=== PATIENT | male | born 1940 | race Caucasian/White ===

== ENCOUNTER 2017-03-21 14:54 | Inpatient (IN) | payer MEDICARE, OTHER ==
[~2017-03-21] VITALS: Ht 193 cm; Wt 102.3 kg
[2017-03-21] MEDS ORDERED: cefTRIAXone 1GM/50ML D5W 50 ML IV ONE (15:00)
[2017-03-21] MEDS ORDERED: VANCOMYCIN PER PHARMACY 0 MG IV SCH (15:00)
[2017-03-21] MEDS ORDERED: FUROSEMIDE 40 MG/4 ML VIAL IV ONE (15:00)
[2017-03-21] MEDS ORDERED: DEXTROSE (50%) 50ML SYRG IV PRN (15:00)
[2017-03-21] MEDS ORDERED: POTASSIUM CHL 20 Meq TABLET PO ONE (15:00)
[2017-03-21] MEDS ORDERED: metroNIDAZOLE 500MG/100ML 100 ML IV ONE (16:00)
[2017-03-21 16:57] LABS: Basophils # (auto) 0.1 uL; Eosinophils # (auto) 0.2 uL; Hemoglobin 10.7 g/dL (13.5-17.5); Lymphocytes # (auto) 1.4 uL; Monocytes # (auto) 0.6 uL
[2017-03-21] MEDS: ACCU-CHEK COMFORT CURVE STRIP VI SCH ×2 (17:00→22:14)
[2017-03-21] MEDS ORDERED: VANCOMYCIN 1GM/250ML D5W 250 ML IV ONE (17:00)
[2017-03-21] MEDS: InsuLIN REG 1unit/0.01ml Soln (100units/ml) SC SCH ×2 (17:00→22:14)
[2017-03-21 17:01] LABS: Basophils % (auto) 1.3 % (0.0-2.0); Eosinophils % (auto) 2.6 % (0.0-7.0); Hematocrit 31.9 % (41.0-53.0); Lymphocytes % (auto) 22.4 % (10.0-50.0); Mean Corpuscular Hgb Conc. 33.5 g/dL (32.0-36.0); Mean Corpuscular Volume 101.4 fL (80.0-100.0); Mean Platelet Volume 8.4 fL (6.9-10.8); Neutrophils # (auto) 3.8 uL; Neutrophils % (auto) 63.7 % (37.0-80.0); Nucleated Red Blood Cells % 0.1 %; Platelet Count (auto) 215 10^3/uL (140-450); Red Cell Distribution Width 13.7 % (11.8-14.3)
[2017-03-21 17:07] LABS: INR 1.01 (0.9-1.15)
[2017-03-21 17:16] LABS: Albumin 3.3 g/dL (3.4-5.0); Calcium 8.5 mg/dL (8.5-10.1); Potassium 4.8 mmol/L (3.5-5.1)
[2017-03-21 17:19] LABS: BUN/Creatinine Ratio 11.1; Bilirubin, Total 0.4 mg/dL (0.2-1.0); Total Protein 6.7 g/dL (6.4-8.2)
[2017-03-21 17:42] VITALS: BP 191/81
[2017-03-21 17:52] LABS: Macrocytosis Slight; Platelet Estimate Adequate
[2017-03-21] MEDS: IPRATROPIUM BROM 0.5 MG/2.5ML INH SOL NEB SCH (17:58)
[2017-03-21] MEDS: ALBUTEROL SULF 2.5 MG/0.5ML(0.5%) NEB SOLN NEB SCH (17:58)
[2017-03-21] MEDS ORDERED: PEN400T PO (19:51)
[2017-03-21] MEDS ORDERED: METO-159 PO (19:51)
[2017-03-21] MEDS ORDERED: AMLO10TA2 PO (19:51)
[2017-03-21] MEDS ORDERED: FURO80TA3 PO (19:51)
[2017-03-21] MEDS ORDERED: CALC0.5C PO (19:51)
[2017-03-21] MEDS ORDERED: ATOR20TA PO (19:51)
[2017-03-21] MEDS ORDERED: LEVO50TA7 PO (19:51)
[2017-03-21 20:46] VITALS: BP 191/81
[2017-03-21 22:00] VITALS: BP 157/71
[2017-03-21] MEDS ORDERED: metroNIDAZOLE 500MG/100ML 100 ML IV SCH (22:00)
[2017-03-21] MEDS: metroNIDAZOLE 500MG/100ML 100 ML IV SCH (23:37)
[2017-03-22 05:00] VITALS: BP 150/71
[2017-03-22 05:37] LABS: Albumin 2.9 g/dL (3.4-5.0); BUN/Creatinine Ratio 12.1; Calcium 8.4 mg/dL (8.5-10.1); Potassium 4.9 mmol/L (3.5-5.1)
[2017-03-22 05:40] LABS: Bilirubin, Total 0.3 mg/dL (0.2-1.0)
[2017-03-22] MEDS: metroNIDAZOLE 500MG/100ML 100 ML IV SCH ×3 (05:42→22:05)
[2017-03-22] MEDS: ALBUTEROL SULF 2.5 MG/0.5ML(0.5%) NEB SOLN NEB SCH ×4 (06:01→18:24)
[2017-03-22] MEDS: IPRATROPIUM BROM 0.5 MG/2.5ML INH SOL NEB SCH ×4 (06:01→18:24)
[2017-03-22] MEDS: InsuLIN REG 1unit/0.01ml Soln (100units/ml) SC SCH ×4 (06:05→22:00)
[2017-03-22] MEDS: ACCU-CHEK COMFORT CURVE STRIP VI SCH ×4 (06:06→22:00)
[2017-03-22 08:00] VITALS: BP 177/67
[2017-03-22] MEDS: cefTRIAXone 1GM/50ML D5W 50 ML IV SCH (09:00)
[2017-03-22 09:17] VITALS: BP 177/67
[2017-03-22] MEDS ORDERED: FUROSEMIDE 40 MG/4 ML VIAL IV SCH (10:00)
[2017-03-22] MEDS ORDERED: POTASSIUM CHL 20 Meq TABLET PO SCH (10:00)
[2017-03-22] MEDS ORDERED: VANCOMYCIN 1,250 MG in D5W 5% 250 ML IV ONE (11:00)
[2017-03-22] MEDS ORDERED: OXYCODONE W/ ACETAMINOPHEN 5/325MG TABLET PO PRN (12:30)
[2017-03-22] MEDS: OXYCODONE W/ ACETAMINOPHEN 5/325MG TABLET PO PRN (12:43)
[2017-03-22 13:00] VITALS: BP 165/62
[2017-03-22 17:32] VITALS: BP_SYST 102; BP_SYST 166; BP_DIAS 45; BP_DIAS 75
[2017-03-22 21:39] VITALS: BP 147/65
[2017-03-23 05:00] VITALS: BP 148/70
[2017-03-23] MEDS: metroNIDAZOLE 500MG/100ML 100 ML IV SCH ×3 (05:26→22:00)
[2017-03-23] MEDS: OXYCODONE W/ ACETAMINOPHEN 5/325MG TABLET PO PRN (05:47)
[2017-03-23] MEDS: ALBUTEROL SULF 2.5 MG/0.5ML(0.5%) NEB SOLN NEB SCH ×4 (06:23→19:55)
[2017-03-23] MEDS: IPRATROPIUM BROM 0.5 MG/2.5ML INH SOL NEB SCH ×4 (06:23→19:55)
[2017-03-23 06:38] LABS: Basophils # (auto) 0 uL; Hemoglobin 10.1 g/dL (13.5-17.5); Lymphocytes # (auto) 0.8 uL; Monocytes # (auto) 0.6 uL
[2017-03-23 06:40] LABS: Basophils % (auto) 0.6 % (0.0-2.0); Eosinophils # (auto) 0.1 uL; Eosinophils % (auto) 2.2 % (0.0-7.0); Hematocrit 29.3 % (41.0-53.0); Lymphocytes % (auto) 12.6 % (10.0-50.0); Mean Corpuscular Hemoglobin 34.6 pg (28.0-32.0); Mean Corpuscular Hgb Conc. 34.4 g/dL (32.0-36.0); Mean Corpuscular Volume 100.6 fL (80.0-100.0); Mean Platelet Volume 8.4 fL (6.9-10.8); Neutrophils % (auto) 75.6 % (37.0-80.0); Platelet Count (auto) 177 10^3/uL (140-450); Red Cell Distribution Width 13.6 % (11.8-14.3); White Blood Cell 6.6 10^3/uL (4.4-10.8)
[2017-03-23] MEDS: InsuLIN REG 1unit/0.01ml Soln (100units/ml) SC SCH ×4 (06:54→22:00)
[2017-03-23] MEDS: ACCU-CHEK COMFORT CURVE STRIP VI SCH ×4 (06:55→22:00)
[2017-03-23 07:02] LABS: Calcium 8.6 mg/dL (8.5-10.1); Potassium 5.4 mmol/L (3.5-5.1)
[2017-03-23 07:04] LABS: BUN/Creatinine Ratio 11.7
[2017-03-23 08:00] VITALS: BP 197/73
[2017-03-23] MEDS ORDERED: VANCOMYCIN 1GM/250ML D5W 250 ML IV ONE (08:00)
[2017-03-23] MEDS: cefTRIAXone 1GM/50ML D5W 50 ML IV SCH (09:00)
[2017-03-23 09:20] VITALS: BP 140/68
[2017-03-23] MEDS: SOD CHL 0.45% 1,000 ML IV SCH (10:27)
[2017-03-23] MEDS ORDERED: HCTZ 25 MG TAB PO ONE (10:30)
[2017-03-23 13:00] VITALS: BP 198/79
[2017-03-23 17:02] VITALS: BP 159/78
[2017-03-23 21:53] VITALS: BP 165/69
[2017-03-24] VITALS (7 sets, daily range): BP systolic 144–172; BP diastolic 55–86
[2017-03-24] MEDS: SOD CHL 0.45% 1,000 ML IV SCH (05:15)
[2017-03-24] MEDS: IPRATROPIUM BROM 0.5 MG/2.5ML INH SOL NEB SCH ×4 (05:50→20:30)
[2017-03-24] MEDS: ALBUTEROL SULF 2.5 MG/0.5ML(0.5%) NEB SOLN NEB SCH ×4 (05:50→20:30)
[2017-03-24] MEDS: OXYCODONE W/ ACETAMINOPHEN 5/325MG TABLET PO PRN ×2 (05:58→21:02)
[2017-03-24] MEDS: metroNIDAZOLE 500MG/100ML 100 ML IV SCH ×3 (05:59→22:00)
[2017-03-24 06:31] LABS: BUN/Creatinine Ratio 12.5; Calcium 8.4 mg/dL (8.5-10.1); Potassium 4.9 mmol/L (3.5-5.1)
[2017-03-24] MEDS: InsuLIN REG 1unit/0.01ml Soln (100units/ml) SC SCH ×4 (07:00→22:00)
[2017-03-24] MEDS: ACCU-CHEK COMFORT CURVE STRIP VI SCH ×4 (07:00→22:00)
[2017-03-24] MEDS: cefTRIAXone 1GM/50ML D5W 50 ML IV SCH (08:58)
[2017-03-24] MEDS ORDERED: HCTZ 25 MG TAB PO SCH (10:00)
[2017-03-24] MEDS: LINEZOLID 600MG/300ML 300 ML IV SCH ×2 (11:01→23:30)
[2017-03-24] MEDS: amLODIPine BESYLATE 5 MG TAB PO SCH (11:02)
[2017-03-24] MEDS: METOPROLOL SUCCINATE XL 50 MG TAB PO SCH (11:02)
[2017-03-25] MEDS: SOD CHL 0.45% 1,000 ML IV SCH ×3 (01:15→22:46)
[2017-03-25 05:00] VITALS: BP 128/67
[2017-03-25] MEDS: metroNIDAZOLE 500MG/100ML 100 ML IV SCH (05:08)
[2017-03-25] MEDS: OXYCODONE W/ ACETAMINOPHEN 5/325MG TABLET PO PRN ×2 (05:09→17:36)
[2017-03-25] MEDS: InsuLIN REG 1unit/0.01ml Soln (100units/ml) SC SCH ×4 (06:20→22:00)
[2017-03-25] MEDS: ACCU-CHEK COMFORT CURVE STRIP VI SCH ×4 (06:20→22:00)
[2017-03-25 06:37] LABS: BUN/Creatinine Ratio 13.4; Calcium 8.8 mg/dL (8.5-10.1); Potassium 4.9 mmol/L (3.5-5.1)
[2017-03-25] MEDS: IPRATROPIUM BROM 0.5 MG/2.5ML INH SOL NEB SCH ×4 (06:56→19:44)
[2017-03-25] MEDS: ALBUTEROL SULF 2.5 MG/0.5ML(0.5%) NEB SOLN NEB SCH ×4 (06:57→19:44)
[2017-03-25 08:00] VITALS: BP 148/68
[2017-03-25 09:00] VITALS: BP 148/69
[2017-03-25] MEDS: METOPROLOL SUCCINATE XL 50 MG TAB PO SCH (09:42)
[2017-03-25] MEDS: amLODIPine BESYLATE 5 MG TAB PO SCH (09:43)
[2017-03-25] MEDS: cefTRIAXone 1GM/50ML D5W 50 ML IV SCH (09:43)
[2017-03-25] MEDS: LINEZOLID 600MG/300ML 300 ML IV SCH ×2 (10:00→23:05)
[2017-03-25 13:00] VITALS: BP 139/61
[2017-03-25] MEDS: metroNIDAZOLE 500 MG TAB PO SCH ×2 (14:00→23:04)
[2017-03-25 17:00] VITALS: BP 135/61
[2017-03-25 21:45] VITALS: BP 126/57
[2017-03-26 05:00] VITALS: BP 123/67
[2017-03-26] MEDS: metroNIDAZOLE 500 MG TAB PO SCH (05:22)
[2017-03-26] MEDS: OXYCODONE W/ ACETAMINOPHEN 5/325MG TABLET PO PRN (05:22)
[2017-03-26] MEDS: InsuLIN REG 1unit/0.01ml Soln (100units/ml) SC SCH (05:23)
[2017-03-26] MEDS: ACCU-CHEK COMFORT CURVE STRIP VI SCH (05:23)
[2017-03-26] MEDS: IPRATROPIUM BROM 0.5 MG/2.5ML INH SOL NEB SCH ×2 (06:19→10:19)
[2017-03-26] MEDS: ALBUTEROL SULF 2.5 MG/0.5ML(0.5%) NEB SOLN NEB SCH ×2 (06:19→10:19)
[2017-03-26 07:00] LABS: BUN/Creatinine Ratio 13.4; Calcium 8.4 mg/dL (8.5-10.1); Potassium 5.1 mmol/L (3.5-5.1)
[2017-03-26 08:00] VITALS: BP 127/60
[2017-03-26 09:00] VITALS: BP 127/60
[2017-03-26 10:29] VITALS: BP 148/68
[2017-03-26] MEDS: METOPROLOL SUCCINATE XL 50 MG TAB PO SCH (11:10)
[2017-03-26] MEDS: amLODIPine BESYLATE 5 MG TAB PO SCH (11:11)
== END 2017-03-26 11:30 | disposition home or self-care (01) | DRG 190 ==
LOC: EAST 14:54 → CENTRAL 17:38
PROVIDERS: ADMIT Internal Medicine; ATTEND Internal Medicine
DX: J44.1 Chronic obstructive pulmonary disease with (acute) exacerbation (principal); N17.0 Acute kidney failure with tubular necrosis; I13.0 Hypertensive heart and chronic kidney disease with heart failure and stage 1 through stage 4 chronic kidney disease, or unspecified chronic kidney disease; L97.429 Non-pressure chronic ulcer of left heel and midfoot with unspecified severity; I50.42 Chronic combined systolic (congestive) and diastolic (congestive) heart failure; M86.9 Osteomyelitis, unspecified; E11.621 Type 2 diabetes mellitus with foot ulcer; E11.51 Type 2 diabetes mellitus with diabetic peripheral angiopathy without gangrene; E11.21 Type 2 diabetes mellitus with diabetic nephropathy; N18.9 Chronic kidney disease, unspecified; D63.8 Anemia in other chronic diseases classified elsewhere; E11.22 Type 2 diabetes mellitus with diabetic chronic kidney disease; Z87.891 Personal history of nicotine dependence; Z79.899 Other long term (current) drug therapy; Z71.3 Dietary counseling and surveillance; Z95.0 Presence of cardiac pacemaker; E11.69 Type 2 diabetes mellitus with other specified complication
CPT/HCPCS: 36415; 71010; 73630; 76775; 80048; 80053; 80202; 82962; 83036; 85025; 85610; 85652; 85730; 93306; 93926; 94640; J0696; J1815; J3490; J7060